=== PATIENT | male | born 1960 | race Two or more races ===

== ENCOUNTER 2022-07-26 09:19 | Outpatient (CLI) | payer MEDICAID ==
[~2022-07-26] VITALS: Ht 152.4 cm; Wt 69.9 kg
[2022-07-26] MEDS ORDERED: albuterol 2.5 MG/3 ML nebule NEB ONE (10:55)
== END 2022-07-26 23:59 | disposition home or self-care (01) ==
LOC: RAD 09:19
PROVIDERS: ATTEND Physician Assistant
DX: Z12.2 Encounter for screening for malignant neoplasm of respiratory organs (principal); I70.0 Atherosclerosis of aorta; I25.10 Atherosclerotic heart disease of native coronary artery without angina pectoris; R94.2 Abnormal results of pulmonary function studies; Q25.46 Tortuous aortic arch; R06.2 Wheezing; Z87.891 Personal history of nicotine dependence; Z79.899 Other long term (current) drug therapy
CPT/HCPCS: 71271; 94060; 94760